=== PATIENT | female | born 1970 | race Native Hawaiian/Other Pacific Islander ===

== ENCOUNTER 2017-07-24 15:01 | Emergency (ER) | payer OTHER ==
[2017-07-24 15:09] VITALS: BMI 31.7
[2017-07-24 15:11] VITALS: TEMP 99.5; O2SAT 100
--- NOTE | 2017-07-24 15:57 | ED PDOC ---
Arrival/HPI - General Historian: Patient <Wero Key - Last Filed: 07/24/17 16:48> <Alirio Robbins - Last Filed: 07/24/17 17:29> - General Chief Complaint: Headache Time Seen by Provider: 07/24/17 15:04 - History of Present Illness Narrative History of Present Illness (Text): 07/24/17 15:32 46 F w/ PMHx pertinent for hyperthyroidism and HTN presents with complaint of headache and high blood pressure. Patient states that she was having throbby head and neck pain of 18 hours duration before she came to the ER, but now her symptoms have resolved. However, yesterday when she went to her PMD's office, she was found to be HTNsive with 180/100 BP. Patient is nervous about her blood pressure and would like to know if anything can be done for her. Patient admits to diarrhea but denies F/Ch/n/v/sob/cp. Patient further denies current dizziness, headache, hematuria, hematochezia, palpitations. No further complaints. (Wero Key) Past Medical History - Provider Review Nursing Documentation Reviewed: Yes - Travel History Have you recently traveled outside [place] w/in the past 3 mons?: No - Infectious Disease Hx of Infectious Diseases: None - Tetanus Immunization Tetanus Immunization: Unknown - Past Medical History Past Medical History: No Previous - Cardiac Hx Cardiac Disorders: Yes ( INDUCED HTN) Hx Hypertension: Yes - Pulmonary Hx Respiratory Disorders: No - Neurological Hx Neurological Disorder: No - HEENT Hx HEENT Disorder: No - Renal Hx Renal Disorder: No - Endocrine/Metabolic Hx Hyperthyroidism: Yes - Hematological/Oncological Hx Blood Disorders: No - Integumentary Hx Dermatological Disorder: No - Musculoskeletal/Rheumatological Hx Falls: No - Gastrointestinal Hx Gall Bladder Disease: Yes (Cholecystectomy 2014) - Genitourinary/Gynecological Other/Comment: C Section - Psychiatric Hx Psychophysiologic Disorder: No Hx Substance Use: No - Past Surgical History Past Surgical History: No Previous - Surgical History Hx Cholecystectomy: Yes - Anesthesia Hx Anesthesia: Yes Hx Anesthesia Reactions: No Hx Malignant Hyperthermia: No - Suicidal Assessment Feels Threatened In Home Enviroment: No <Shahid,Wero Abdulazizdeepak - Last Filed: 07/24/17 16:48> Family/Social History - Physician Review Nursing Documentation Reviewed: Yes Family/Social History: Diabetes Smoking Status: Never Smoked Hx Alcohol Use: Yes Hx Substance Use: No Hx Substance Use Treatment: No <Wero Key - Last Filed: 07/24/17 16:48> Allergies/Home Meds <Wero Key - Last Filed: 07/24/17 16:48> <Alirio Robbins - Last Filed: 07/24/17 17:29> Allergies/Adverse Reactions: Allergies No Known Allergies Allergy (Verified 03/21/15 19:31) Home Medications: Home Meds Medication Instructions Recorded Confirmed methIMAzole [Tapazole] 5 mg PO TID 07/24/17 07/24/17 Review of Systems - Review of Systems Constitutional: Normal. absent: Fatigue, Weight Change, Fevers Eyes: Normal. absent: Vision Changes, Photophobia, Eye Pain ENT: Normal. absent: Hearing Changes, Tinnitus Respiratory: Normal. absent: SOB, Cough, Sputum Cardiovascular: Normal. absent: Chest Pain, Palpitations, PIERCE, Orthopnea Gastrointestinal: Normal, Diarrhea. absent: Abdominal Pain, Stool Changes, Constipation, Nausea, Vomiting, Hematochezia, Hematemesis Genitourinary Female: Normal. absent: Dysuria, Hematuria, Vaginal Bleeding (Pt has irregular periods) Musculoskeletal: Normal. absent: Back Pain, Neck Pain Skin: Normal. absent: Rash, Skin Lesions, Laceration Neurological: Normal. absent: Headache, Dizziness Endocrine: Normal. absent: Diaphoresis Hemo/Lymphatic: Normal. absent: Adenopathy Psychiatric: Anxiety. absent: Depression <Wero Key - Last Filed: 07/24/17 16:48> Physical Exam Temperature: Afebrile Blood Pressure: Hypertensive Pulse: Regular Respiratory Rate: Normal Appearance: Positive for: Well-Appearing, Non-Toxic, Comfortable Pain Distress: None Mental Status: Positive for: Alert and Oriented X 3 - Systems Exam Head: Present: Atraumatic, Normocephalic Pupils: Present: PERRL Extroacular Muscles: Present: EOMI Conjunctiva: Present: Normal Mouth: Present: Moist Mucous Membranes Neck: Present: Normal Range of Motion Respiratory/Chest: Present: Clear to Auscultation, Good Air Exchange. No: Respiratory Distress, Accessory Muscle Use Cardiovascular: Present: Regular Rate and Rhythm, Normal S1, S2. No: Murmurs Abdomen: Present: Normal Bowel Sounds. No: Tenderness, Distention, Peritoneal Signs Back: Present: Normal Inspection Upper Extremity: Present: Normal Inspection. No: Cyanosis, Edema Lower Extremity: Present: Normal Inspection. No: Edema Neurological: Present: GCS=15, CN II-XII Intact, Speech Normal Skin: Present: Warm, Dry, Normal Color. No: Rashes Psychiatric: Present: Alert, Oriented x 3, Normal Insight, Normal Concentration <Wero Key - Last Filed: 07/24/17 16:48> Medical Decision Making <Wero Key - Last Filed: 07/24/17 16:48> <Alirio Robbins - Last Filed: 07/24/17 17:29> ED Course and Treatment: 07/24/17 15:54 Impression: 46 F w/ hyperthyroidism and HTN presents with c/o elevated blood pressure. She had a SPANGLER at home, which has resolved. Plan - HCTZ, monitor - EKG - Reassess 07/24/17 16:56 Pt Reassessed - Continues to be asymptomatic - EKG: NSR - BP improved - Spoke to Dr. Lynch, her PMD, who is agreeable to patient being sent home with HCTZ 12.5 PO with a 10 day supply. He states that she has good follow up - Pt stable for d/c (ShahidWero Francisco) A 46 year old female with a headache and high blood pressure. In agreement with resident note, which includes further HPI details. Patient was seen and evaluated with resident, came up with plan and treatment together. EKG shows NSR at [address]-segment elevations, normal intervals, normal axis. Interpreted by me. Patient felt asymptomatic during ED stay. She was concerned about her elevated blood pressure so she wanted to discuss options for blood pressure control since she feels like it goes up every day. Case was discussed with Dr. Lynch who agreed that we start patient on HCTZ and he will f/u on her care. (Alirio Robbins) - Medication Orders Current Medication Orders: Discontinued Medications Hydrochlorothiazide (Microzide) 12.5 mg PO STAT STA Stop: 07/24/17 15:58 Last Admin: 07/24/17 16:16 Dose: 12.5 mg Disposition/Present on Arrival - Present on Arrival Any Indicators Present on Arrival: No History of DVT/PE: No History of Uncontrolled Diabetes: No Urinary Catheter: No History of Decub. Ulcer: No History Surgical Site Infection Following: None - Disposition Have Diagnosis and Disposition been Completed?: Yes Disposition Time: 16:59 <Wero Key - Last Filed: 07/24/17 16:48> - Disposition Patient Plan: Discharge <Alirio Robbins - Last Filed: 07/24/17 17:29> - Disposition Diagnosis: Headache, Hypertension Disposition: HOME/ ROUTINE Patient Problems: Current Active Problems Problem Status Onset Headache Acute Hypertension Acute Condition: IMPROVED Additional Instructions: Ms. South, thank you for letting us take care of you today. Your providers were Dr. Robbins and Dr. Key. You were treated for high blood pressure and headache. The emergency medical care you received today was directed at your acute symptoms. If you were prescribed any medication, please fill it and take as directed. It may take several days for your symptoms to resolve. Return to the Emergency Department if your symptoms worsen, do not improve, or if you have any other problems. Please contact your doctor or call one of the physicians/clinics you have been referred to that are listed on the Patient Visit Information form that is included in your discharge packet. Bring any paperwork you were given at discharge with you along with any medications you are taking to your follow up visit. Our treatment cannot replace ongoing medical care by a primary care provider (PCP) outside of the emergency department. Thank you for allowing the [facility] team to be part of your care today. If you had an X-Ray or CT scan: A Radiologist will review the ED reading if any change in treatment is needed we will contact you. If you had a blood, urine, or wound culture: It will take several days for the results, if any change in treatment is needed we will contact you. If you had an STI test: It will take 48 hours for the results. Please call after 1 week if you have not heard back. Prescriptions: hydroCHLOROthiazide [Microzide] 12.5 mg PO DAILY #10 cap Referrals: Lance Lynch MD [Primary Care Provider] - Follow up with primary Forms: [facility] (Scottish)
[2017-07-24 17:25] VITALS: BP 149/90; PULSE 85; RESP 16
--- NOTE | 2017-07-24 18:52 | CARD ---
APPROVED REPORT EKG Measurement Heart [id number] <Conclusion> Normal sinus rhythm Normal ECG
== END 2017-07-24 17:24 | disposition home or self-care (01) ==
LOC: ED 15:01
DX: I10 Essential (primary) hypertension (principal); R51 Headache

== ENCOUNTER 2019-01-03 11:27 | Outpatient (CLI) | payer OTHER | END 2019-01-03 11:28 | disposition home or self-care (01) | LOC: LAB 11:27 ==

== ENCOUNTER 2019-02-06 14:14 | Outpatient (CLI) | payer OTHER | END 2019-02-06 14:15 | disposition home or self-care (01) | LOC: LAB 14:14 ==